=== PATIENT | female | born 1960 | race Caucasian/White ===

== ENCOUNTER 2021-12-03 00:41 | Emergency (ER) | payer MEDICAID ==
[~2021-12-03] VITALS: Ht 165.1 cm; Wt 90.0 kg
[2021-12-03] MEDS ORDERED: SODIUM CHLORIDE 0.9% 1,000 ML IV ONE (01:15)
[2021-12-03 06:10] LABS: EOSINOPHILS % 1.7 % (0.0-5.0); HEMATOCRIT. 37.5 % (36.0-48.0); HEMOGLOBIN. 11.9 g/dL (12.0-16.0); LYMPHOCYTES % 38.5 % (20.0-50.0); MEAN CORPUSCULAR HEMOGLOBIN 27.3 pg (28.0-32.0); MEAN CORPUSCULAR VOLUME 85.7 fL (81.0-99.0); MONOCYTES % 8.4 % (2.0-8.0); NEUTROPHILS % 50.4 % (40.0-76.0); PLATELET 356 x1000/uL (130-400); RED BLOOD CELL COUNT 4.37 mill/uL (4.2-5.4); RED CELL DISTRIBUTION WIDTH 19.6 % (11.6-14.6)
[2021-12-03 06:16] LABS: CHLORIDE 112 mEq/L (98-107)
[2021-12-03 06:21] LABS: ETHANOL BLOOD 291 mg/dL
[2021-12-03 12:49] VITALS: BP 121/85
== END 2021-12-03 12:50 | disposition home or self-care (01) ==
LOC: ER 03:13
DX: F10.229 Alcohol dependence with intoxication, unspecified (principal); I10 Essential (primary) hypertension; J45.909 Unspecified asthma, uncomplicated; Y90.8 Blood alcohol level of 240 mg/100 ml or more
CPT/HCPCS: 36415; 70450; 80053; 80320; 85025; 99284; J7030; G0480